=== PATIENT | female | born 1960 | race Caucasian/White ===

== ENCOUNTER 2021-02-13 08:32 | Day surgery (SDC) | payer OTHER ==
--- NOTE | 2021-02-10 12:58 | EKG ---
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
[2021-02-13] MEDS ORDERED: OXYMETAZOLINE HCL 0.05% 15ML NAS ONE ×2 (10:24→10:39)
[2021-02-13] MEDS ORDERED: Ringers Lactate 1,000 ML IV ONE (10:24)
[2021-02-13] MEDS ORDERED: NA CHLORIDE 0.9% 500 ML ONE (10:39)
[2021-02-13] MEDS ORDERED: LIDOCAINE 1% W/EPI 1:100,000 MDV 20 ML VIAL ONE (10:39)
[2021-02-13] MEDS ORDERED: ROCURONIUM 50 MG/5 ML VIAL IV ONE (10:43)
[2021-02-13] MEDS ORDERED: FENTANYL CITR 100 MCG/2 ML ONE (10:43)
[2021-02-13] MEDS ORDERED: LIDOCAINE 1% MPF 5 ML VIAL ONE (10:43)
[2021-02-13] MEDS ORDERED: MIDAZOLAM HCL 2 MG/2 ML INJ ONE (10:43)
[2021-02-13] MEDS ORDERED: propofoL 200 MG/20 ML VIAL IV ONE (10:43)
[2021-02-13] MEDS ORDERED: LIDOCAINE JELLY 2%- 5 ML TUBE ONE (11:45)
[2021-02-13] MEDS ORDERED: dexAMETHasone 10 MG/ML VIAL ONE (12:00)
[2021-02-13] MEDS ORDERED: KETOROLAC 30 MG/ML INJ ONE (12:00)
--- NOTE | 2021-02-13 12:03 | P.BOP ---
Preoperative diagnosis: L rosario, NO Postoperative diagnosis: same Primary procedure: NE with L rosario resection Manufacturing Worker: NONE,NONE Estimated blood loss: <5ml Specimen: sinus trimmings Findings: large >2cm septal perforation, atrophy of B IT, L rosario Anesthesia: General Complications: None Implants: Xerogel to L MM Fluids & blood products: 700ml crystalloid Transferred to: Recovery Room Condition: Good
[2021-02-13] MEDS ORDERED: ONDANSETRON 4 MG/2 ML VIAL ONE (12:08)
[2021-02-13] MEDS ORDERED: NEOSTIGMINE 1 MG/ML -5 ML ONE (12:10)
[2021-02-13] MEDS ORDERED: GLYCOPYRROLATE 0.2 MG/ML SYR ONE ×2 (12:10→12:13)
[2021-02-13 12:25] VITALS: O2SAT 100
[2021-02-13] MEDS ORDERED: HYDROCODONE/APAP 5/325 MG TAB ONE (13:21)
--- NOTE | 2021-02-13 13:32 | OP ---
Date of Procedure: 02/13/2021 Surgeon: Ashia Mar MD Preoperative Diagnoses: Rosario bullosa, nasal obstruction. Postoperative Diagnoses: Rosario bullosa, nasal obstruction. Procedure: Nasal endoscopy with left rosario bullosa resection. Indication For Procedure: Ms. Alford presented to me with nasal obstruction and sensation of shortn ess of breath. She does have COPD and was referred to the blast setter, who cleared her for surgery . 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 The patient has not had detailed and lengthy and multiple conversations regarding causes of nasal obstruction. The size of the perforation was appro ximately 2 cm and was too large to consider closure. 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 Despite these understandings, the patient was highly motivated to proceed with rosario bullos a resection in hopes of improving her nasal obstruction, which she did feel was worse on the left rani e. Description Of Procedure: The patient was brought to the operating room. She was placed under gener al anesthesia via oral endotracheal tube. The head of bed was turned 90 degrees. The nasal cavity w as packed with Afrin-soaked pledgets. A 0-degree endoscope was used to perform photodocumentation of the nasal findings including a large 2+ cm septal perforation with near complete atrophy of the infe rior turbinates and widened left middle turbinate. The middle turbinate was injected with 1% lidocai ne with epinephrine. A sickle knife was used to make an incision within the head of the middle turbi dereck. Then the endoscopic scissors straight and curved to the right were used to further divide the lateral aspect of the rosario from the medial aspect and attachment points. Finally, the 90 degree th rough cutting Blakesley was used to cut along the posterior attachment and the fragment of bone and m ucosa were removed using a straight Blakesley. The edges were carefully trimmed and refined using a straight through cutting Blakesley and Afrin soaked pledget was used to obtain hemostasis. After rem oval and confirmation of pledget counts, a dissolvable Xerogel sinus dressing was placed within the l eft middle meatus and soaked with saline. The procedure was concluded. The patient was returned to care of Anesthesia for awakening and extubation in the operating room, which proceeded without diffic ulty. Complications: None. Blood Loss: Less than 5 mL. Implants: Xerogel dissolvable nasal dressing. Complications: None. Disposition: The patient will be discharged home later today with the salt water irrigations twice d aily and follow up with Dr. Mar as scheduled in 10 days. KIMBERLY/PAULINO Voice ID: [id number] Report ID: [id number]
[2021-02-13 14:34] VITALS: TEMP 97.4
[2021-02-13 14:36] VITALS: BP 149/89
== END 2021-02-13 13:50 | disposition home or self-care (01) ==
LOC: OR 08:32
PROVIDERS: ATTEND Otolaryngology
PROC: 09BL8ZX Excision of Nasal Turbinate, Via Natural or Artificial Opening Endoscopic, Diagnostic (ICD-10-PCS; principal; 2021-02-13 10:45)
DX: J34.89 Other specified disorders of nose and nasal sinuses (principal); J31.0 Chronic rhinitis; Z72.0 Tobacco use; Z20.822 Contact with and (suspected) exposure to COVID-19
CPT/HCPCS: 93005; 88305; 88311; 31240; U0002; J2704; J2250; J3010; J1100; J2710; J7120; J7040; J2405